=== PATIENT | female | born 1980 | race Caucasian/White ===

== ENCOUNTER 2018-10-13 06:16 | Day surgery (SDC) | payer OTHER ==
[2018-10-06 14:10] LABS: Absolute Lymphocytes (CBC) 2.4 K/uL (0.7-4.9); Absolute Monocytes 0.8 K/uL (0.1-1.3); Absolute Neutrophil 7.2 K/uL (1.8-8.0); Basophils % 0.9 % (0-1.3); Eosinophils % 2.2 % (0-4.4); Hematocrit 38.3 % (36.0-45.0); Lymphocytes % 22.1 % (15.3-44.8); Monocytes % 7.7 % (3.3-12.3); RBC Red Blood Cell Count 4.12 M/uL (3.86-4.86)
[2018-10-06 14:18] LABS: Urine Appearance CLEAR; Urine Bilirubin NEGATIVE (NEG); Urine Blood NEGATIVE (NEG); Urine Color YELLOW; Urine Glucose NEGATIVE (NEG); Urine Protein NEGATIVE (NEG); Urine Specific Gravity <=1.005 (1.005-1.030); Urine Urobilinogen 0.2 mg/dL (0.2-1.0); Urine pH 7.5 (5.0-7.0)
[2018-10-06 14:25] LABS: Urine Bacteria <20 /HPF (<20); Urine Culture Reflex Order REFLEXED; Urine Microscopic Reflex ORDER UMIC; Urine RBC <5 /HPF (NONE SEEN)
[2018-10-13] MEDS ORDERED: ROCURONIUM 50 MG/5 ML VIAL IV ONE (07:02)
[2018-10-13] MEDS ORDERED: PROPOFOL 200 MG/20 ML VIAL IV ONE (07:02)
[2018-10-13] MEDS ORDERED: GLYCOPYRROLATE 0.2 MG/ML SYR ONE ×2 (07:03→07:04)
[2018-10-13] MEDS ORDERED: LIDOCAINE 2% MPF 5 ML VIAL ONE (07:04)
[2018-10-13] MEDS ORDERED: DEXAMETHASONE 10 MG/ML VIAL ONE (07:04)
[2018-10-13] MEDS ORDERED: FENTANYL CITR 250 MCG/5 ML ONE (07:05)
[2018-10-13] MEDS ORDERED: NEOSTIGMINE 1 MG/ML -5 ML SYRINGE ONE (07:07)
[2018-10-13] MEDS ORDERED: ONDANSETRON 4 MG/2 ML VIAL ONE ×2 (07:07→10:21)
[2018-10-13] MEDS ORDERED: SCOPOLAMINE HYDROBROMIDE PATCH TD ONE (07:13)
[2018-10-13] MEDS ORDERED: Ringers Lactate 1,000 ML IV ONE ×3 (07:14→11:48)
[2018-10-13] MEDS ORDERED: NA CHLORIDE 0.9% 1,000 ML ONE (07:16)
[2018-10-13] MEDS ORDERED: MIDAZOLAM HCL 2 MG/2 ML INJ ONE (07:19)
[2018-10-13] MEDS ORDERED: Phenylephrine HCl 10 MG/ML 1 ML VIAL ONE (08:33)
[2018-10-13] MEDS ORDERED: NS 0.9% VIAL 20 ML ONE (08:33)
[2018-10-13] MEDS ORDERED: METHYLENE BLUE 0.5% 10 ML AMP ONE (10:12)
[2018-10-13] MEDS ORDERED: KETOROLAC 30 MG/ML INJ ONE (10:16)
[2018-10-13] MEDS: MEPERIDINE HCL 50 MG/ML AMP ONE ×2 (10:52→11:00)
[2018-10-13] MEDS ORDERED: ONDANSETRON HCL 40 MG/20 ML VIAL ONE (11:07)
[2018-10-13] MEDS: HYDROMORPHONE HCL 1 MG/ML INJ ONE ×2 (11:16→11:30)
[2018-10-13] MEDS ORDERED: IBUPROFEN 200 MG TAB PO ONE (12:40)
--- NOTE | 2018-10-17 00:32 | OP ---
Date of Procedure: 10/13/2018 Surgeon: Melissa Calix MD Insurance Premium Auditor: Arin Escobar. Preoperative Diagnoses: Pelvic pain, history of endometriosis in the past diagnosed and treated abou t 12 years ago, and secondary dysmenorrhea. 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 Procedures Performed: 1.Diagnostic hysteroscopy. 2.Diagnostic laparoscopy. 3.Endometriosis excision and ablation. 4.Lysis of cecal adhesions. 5.Chromotubation. 6.Bilateral ovariolysis where the ovaries were released of their adhesions in order to have good egg pickup and the medial and superior pole close to the utero-ovarian ligament attachment was cleaned u p as best as I could so that there was no more endometriosis here that could attach to the lateral wa ll. Anesthesia: General. Estimated Blood Loss: Minimal, less than 100. Complications: No complications. Drains: None. Condition: Stable. Indications: The patient is a 38-year-old, presented with pelvic pain and severe dysmenorrhea. Nonc yclic pelvic pain has gotten much worse. She is patient of Dr. Tilley. The patient had severe dysme norrhea, diagnosed with endometriosis and had endometriosis excision 12 years ago. She has undergone a gastric sleeve as well for weight loss and has lost significant amount of weight. The patient has desires for future conception. The patient is a 4, para 2-0-2-2. Progressiv david, the patient has had increasing pelvic pain that was noncyclic with increasing dysmenorrhea. It has come to the point where she is unable to conceive and the pain has become so limiting especially in the right lower quadrant. It is sharp at times where there is no pain relief for her, that the ep isodic pain can last for greater than 2 days without any relief. This pain is also worse during the time of her periods. So we discussed about all the different options, especially since she was tryin g to conceive and the pain has become intolerable, discussed about the option of a laparoscopy, possi ble endometriosis excision. Due the long history of possible infertility where there were no contrac eptives use, she was actively trying to conceive and unable to, decided that she needs evaluation of chromotubation. However, no prior evidence of any testing has been given to me. After doing the transvaginal ultrasound, no adnexal masses found. Then we discussed diagnostic hyste roscopy, diagnostic laparoscopy, endo treatment and chromotubation. That could help with both in rel ief in pain as well as conception. Checking tubal patency could also be done at the same time. Description Of Procedure: After informed consent was verified, the patient was taken back to the OR, placed in a supine fashion on the operating table. General anesthesia was given. Placed in a dorsa l lithotomy position. No antibiotics were given. Pelvic exam performed. Uterus was retroflexed, no adnexal masses. After exam was done the abdomen, vulva, vagina, and perineum were prepped and draped in a sterile fas hion. Harris was placed to drain the bladder. Speculum placed to expose the cervix, anterior lip gra sped with an Allis clamp and Slimline hysteroscope used with 30-degree lens normal saline for checkin g the internal anatomy of the uterus itself. Once this was done and it was unremarkable, the scope w as pulled out and a diagnostic VCare was introduced into place. Harris was attached to a drainage bul b and this area was covered. A 1 cm infraumbilical incision was made with a scalpel using the open laparoscopy technique. Fascia was incised and tagged. Peritoneum was entered bluntly, S retractors were placed without any problem s. Upper abdominal surfaces were visualized and they were mostly unremarkable other than the left di aphragmatic single implant that was seen. This was possibly an implant, we do not have confirmation. After placing the patient in Trendelenburg, three 5 ports were placed in the left lower quadrant and right lower quadrant and central. This was because of the large cecal adhesion present in the right lower quadrant, which had to be taken down there and there were also anterior abdominal masses which were most likely adhesions from her prior scar. On close examination, there was evidence of endometriosis on the cecum and this was attached to the r ight lateral anterior abdominal wall. This probably was the site of her pain and this correlates wit h the site of her pain. The adhesions were closely visualized, with a push-spread technique windows were made and this was ta sloan down. All the other omental adhesions that were present to the anterior abdominal wall both in t he right and left were taken down with the help of the LigaSure. Once the cecum was released, all the pericecal adhesions were taken down. The appendix was visualize d. The appendix had no involvement in this endometrial tissue. The tissue appeared to be penetratin g through the muscle of the cecum because there was no space between the lesion and the cecal wall so the adhesions were shaved off, the tissue on the cecal wall was gently teased out. Thorough irrigat ion and suction were performed. This was hemostatic and safe so it was left alone. Right lateral wall was visualized. The ureter was visualized with the pelvic brim to the ureteric tu nnel. There was endometriosis extensively with the right ovary attached to the right sidewall and to the posterior aspect of the broad ligament as well as the distal part of the tube was attached in the same area. These adhesions were taken down with push-spread technique with cutting using the laparo scopic cold scissors. Once this was achieved, the ovary was retracted superiorly from here on all th e way down to the periureteric area and the uterosacral ligaments on both sides. The entire cul-de-s ac was all involved with endometriosis. Tried to make a window lateral and superior to the ureter us ing the sharp scissors. Since there is absence of fat, it was difficult to create a plane where the gas would get there. There was no carbon dioxide gas during dissection for me in this case. With th at, along multiple points the peritoneum was opened up and the ureteric dissection was attempted to b e performed but this was very difficult because there was bleeding everywhere I started my cut. So I think at one point starting distally at the level of the uterine line, there was a bleed from one of its branches and this was cauterized after making a nice window with the LigaSure. Once this was do ne, I decided to remove the implants closer to the uterosacral ligament which were removable here. T his was dissected with the monopolar needle and removed. Rest of the implants were picked up and cau terized with the help of the bipolar LigaSure and left alone. The uterosacral ligament implants were also shaved off and removed. There were posterior cul-de-sac implants as well that were picked up a nd dissected laterally from the bowel wall and then cauterized with the help of the bipolar. Then th e left lateral wall, the incision was made to open up the peritoneum, only small dissection was able to be performed due to the same reasons as to opposite side but there was no fat and all the endometr iosis was soft and attached to the vessels as well as the ureter. So once all that could be shaved, all was taken down with the help of push-spread technique and a monopolar needle. The rest of the im plants were cauterized with the help of the bipolar cautery. Once this was done, the anterior cul-de -sac was approached. Here, there was endometriosis on the bladder peritoneum. The peritoneum was op ened up above the level of this and nice circumferential monopolar needle dissection was performed an d then the implants x3 were dissected away and handed off for permanent pathology. The anterior abdo casandra wall on the right lateral aspect where the cecum was attached, this was also cleaned up with th e help of monopolar needle taking out all the tissue that was attached to the underlying rectus abdom inis fascia. Once the endometrial implants were satisfactorily removed, the ovarian adhesions on the left side wer e also taken down with the help of scissors and the ovary was released. We went ahead and did chromo tubation with dilute methylene blue 1 ampule in 50 cc of normal saline. On injection, both tubes debbie dily filled and spilled. No evidence of any clubbing or hydrosalpinges. Thorough irrigation and suc tion were performed. All the ports were removed. All the instruments were removed along with no boris dence of any bleeding. Gas was desufflated. Delilah was removed. The fascia was closed with the hel p of the tagged 0 Vicryl suture tied to each other at both ends and then simple 4-0 Monocryl sutures at all incisions. VCare and Harris were removed and this area was cleaned up. Instrument, needle, an d sponge counts were done and were correct at the end of the case. The patient tolerated the procedu re well. She was recovered from anesthesia in the OR and taken to PACU in stable condition. She will follow up with me in 1 week. CAMACHO Voice ID: [id number] Report ID: [id number]
== END 2018-10-13 13:38 | disposition home or self-care (01) ==
LOC: OR 06:16
PROVIDERS: ATTEND Obstetrics & Gynecology
PROC: 0UB04ZX Excision of Right Ovary, Percutaneous Endoscopic Approach, Diagnostic (ICD-10-PCS; 2018-10-13)
PROC: 0UB94ZX Excision of Uterus, Percutaneous Endoscopic Approach, Diagnostic (ICD-10-PCS; 2018-10-13)
PROC: 0UB54ZX Excision of Right Fallopian Tube, Percutaneous Endoscopic Approach, Diagnostic (ICD-10-PCS; 2018-10-13)
PROC: 3E0P7KZ Introduction of Other Diagnostic Substance into Female Reproductive, Via Natural or Artificial Opening (ICD-10-PCS; 2018-10-13)
PROC: 0UBF4ZX Excision of Cul-de-sac, Percutaneous Endoscopic Approach, Diagnostic (ICD-10-PCS; principal; 2018-10-13 07:30)
DX: N80.0 Endometriosis of uterus (principal); N94.5 Secondary dysmenorrhea; N80.5 Endometriosis of intestine; N80.8 Other endometriosis; K66.0 Peritoneal adhesions (postprocedural) (postinfection); N73.6 Female pelvic peritoneal adhesions (postinfective); F41.9 Anxiety disorder, unspecified; F33.1 Major depressive disorder, recurrent, moderate; Z79.899 Other long term (current) drug therapy
CPT/HCPCS: 36415; 81003; 81015; 81025; 85025; 86850; 86900; 86901; 87086; 87088; 88305; J1100; J1170; J2175; J2250; J2370; J2405; J2704; J2710; J3010; J7030

== ENCOUNTER 2019-03-04 16:00 | Emergency (ER) | payer OTHER ==
[2019-03-04] MEDS ORDERED: MORPHINE 2 MG/ML SYR ONE (16:43)
[2019-03-04] MEDS ORDERED: ONDANSETRON 4 MG/2 ML VIAL ONE (16:43)
[2019-03-04] MEDS ORDERED: FAMOTIDINE 20 MG/2 ML VIAL IV ONE (16:44)
[2019-03-04] MEDS ORDERED: NA CHLORIDE 0.9% 1,000 ML ONE ×2 (16:44→18:18)
[2019-03-04 16:46] LABS: Absolute Monocytes 0.3 K/uL (0.1-1.3); Absolute Neutrophil 9.5 K/uL (1.8-8.0); Basophils % 0.2 % (0-1.3); Eosinophils % 0.1 % (0-4.4); Hematocrit 39.1 % (36.0-45.0); Lymphocytes % 9.4 % (15.3-44.8); Monocytes % 3.1 % (3.3-12.3); RBC Red Blood Cell Count 4.25 M/uL (3.86-4.86)
[2019-03-04 17:07] LABS: Albumin 4.1 g/dL (3.4-5.0); Bilirubin Direct 0.4 mg/dL (0-0.2); Bilirubin Total 0.8 mg/dL (0.2-1.0); Potassium 4.2 mmol/L (3.5-5.1); Protein, Total 7.8 g/dL (6.4-8.2)
--- NOTE | 2019-03-04 17:18 | RAD REPORT ---
EXAM DESCRIPTION: US - Abdomen Exam Limited - 03/04/2019 4:55 pm CLINICAL HISTORY: Abdominal pain. COMPARISON: None. FINDINGS: Multiple gallstones. Borderline gallbladder wall thickening. The biliary tree is normal caliber. IMPRESSION: Cholelithiasis. Borderline gallbladder wall thickening equivocal for cholecystitis
[2019-03-04 17:41] LABS: Urine Blood NEGATIVE (NEG); Urine Glucose NEGATIVE (NEG); Urine Protein 2+ (NEG)
[2019-03-04] MEDS ORDERED: CEFTRIAXONE/SWI 1gm 1 GM/10 ML SYR ONE (18:01)
[2019-03-04] MEDS ORDERED: FENTANYL CITR 100 MCG/2 ML ONE (18:18)
--- NOTE | 2019-03-04 18:24 | EDPHYS ---
Physician Documentation [facility] Name: Soledad Whelan Age: 38 yrs Sex: Female : 1980 Arrival Date: 03/04/2019 Time: 16:04 Bed 13 Private MD: Ismael Tilley B ED Physician Leo Kelley HPI: 03/04 16:25 This 38 yrs old Female presents to ER via Ambulatory with complaints of cp Abdominal Pain. 16:25 The patient presents with abdominal pain in the epigastric area, in the right upper cp quadrant. 16:25 Onset: The symptoms/episode began/occurred today, at 10:00. cp 16:25 The symptoms radiate to Associated signs and symptoms: Pertinent positives: nausea, cp Pertinent negatives: blood in stools, constipation, diarrhea, dysuria, fever, vomiting. 16:25 Severity of pain: in the emergency department the pain is a 6 / 10. cp 16:25 The symptoms are described as constant. Modifying factors: the symptoms are aggravated cp by pressure. 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 - Social history:: Smoking status: Patient/guardian denies using tobacco. - Ebola Screening: : No symptoms or risks identified at this time. ROS: 16:30 Constitutional: Negative for body aches, chills, fever, poor PO intake. cp 16:30 Eyes: Negative for injury, pain, redness, and discharge. cp 16:30 Cardiovascular: Negative for chest pain, palpitations. cp 16:30 Respiratory: Negative for cough, shortness of breath, wheezing. cp 16:30 Abdomen/GI: Positive for abdominal pain, nausea, anorexia, of the epigastric area and right upper quadrant, Negative for vomiting, diarrhea, constipation. 16:30 Back: Positive for radiated pain, Negative for injury or acute deformity. 16:30 : Negative for urinary symptoms. 16:30 Skin: Negative for cellulitis, rash. 16:30 Neuro: Negative for altered mental status, headache, weakness. 16:30 All other systems are negative. Exam: 16:45 Constitutional: The patient appears in no acute distress, alert, awake, non-toxic, well cp developed, well nourished, uncomfortable. 16:45 Head/Face: Normocephalic, atraumatic. cp 16:45 Eyes: Periorbital structures: appear normal, Conjunctiva: normal, no exudate, no injection, Sclera: no appreciated abnormality, Lids and lashes: appear normal, bilaterally. 16:45 ENT: External ear(s): are unremarkable, Nose: is normal, Mouth: Lips: moist, Oral mucosa: pink and intact, moist, Posterior pharynx: is normal, airway is patent, no erythema, no exudate. 16:45 Neck: ROM/movement: is normal, is supple, without pain, no range of motions limitations, no nuchal rigidity. 16:45 Chest/axilla: Inspection: normal, Palpation: is normal, no crepitus, no tenderness. 16:45 Cardiovascular: Rate: tachycardic, Rhythm: regular. 16:45 Respiratory: the patient does not display signs of respiratory distress, Respirations: normal, no use of accessory muscles, no retractions, no splinting, no tachypnea, labored breathing, is not present, Breath sounds: are clear throughout, no decreased breath sounds, no stridor, no wheezing. 16:45 Abdomen/GI: Inspection: abdomen appears normal, Bowel sounds: active, all quadrants, Palpation: soft, in all quadrants, severe abdominal tenderness, in the epigastric area and right upper quadrant, rebound tenderness, is not appreciated, voluntary guarding, is elicited in the epigastric area and right upper quadrant. 16:45 Back: ROM is normal. Vital Signs: 16:06 BP 114 / 65; Pulse 113; Resp 18; Temp 98; Pulse Ox 100% ; Weight 59.42 kg; Height 5 ft. sv 4 in. (162.56 cm); Pain 6/10; 17:05 BP 95 / 49; Pulse 71; Resp 18; Pulse Ox 100% ; bp 18:28 BP 101 / 59; Pulse 73; Resp 14; Pulse Ox 100% ; bp 20:30 BP 103 / 65; Pulse 78; Resp 18; Temp 97.5(O); Pulse Ox 100% on R/A; ed1 16:06 Body Mass Index 22.49 (59.42 kg, 162.56 cm) sv MDM: 16:07 Patient medically screened. 16:45 Differential diagnosis: appendicitis, cholecystitis, Cholelithiasis, pancreatitis, cp Peptic Ulcer Disease, Perf. Duodenal Ulcer, Perf. Gastric Ulcer, Pyelonephritis, urinary tract infection. 17:25 Data reviewed: vital signs, nurses notes, lab test result(s), radiologic studies, cp ultrasound. 17:25 Counseling: I had a detailed discussion with the patient and/or guardian regarding: the cp historical points, exam findings, and any diagnostic results supporting the discharge/admit diagnosis, lab results, radiology results. 17:35 Physician consultation: Brennan Merlos MD was called at 17:35, was contacted at 17:35, regarding consult, after a discussion of the case, a recommendation for transfer for higher level of care is made. 03/04 16:21 Order name: Basic Metabolic Panel; Complete Time: 17:24 03/04 17:24 Interpretation: Normal except: CL 108; GFR 65. 03/04 16:21 Order name: CBC with Diff 03/04 17:08 Interpretation: Normal except: RDW 12.0; LAST% 87.2; LYM% 9.4; MN% 3.1; NEUT A 9.5. 03/04 16:21 Order name: Creatinine for Radiology; Complete Time: 17:08 03/04 17:08 Interpretation: Reviewed. 03/04 16:21 Order name: Hepatic Function; Complete Time: 17:24 03/04 17:24 Interpretation: Normal except: AST 457; ALT 252; ALK 199; BILID 0.4; GLOB 3.7. 03/04 16:21 Order name: Lipase; Complete Time: 17:24 03/04 16:53 Order name: Urine Dipstick--Ancillary (enter results); Complete Time: 17:44 03/04 17:58 Interpretation: Normal except: UPROT 2+; UESTR TRACE. 03/04 16:21 Order name: US Abdomen Limited: RUQ/epigastric pain; Complete Time: 17:24 03/04 17:38 Interpretation: Report reviewed. 03/04 16:53 Order name: Urine --Ancillary (enter results); Complete Time: 17:44 03/04 18:43 Order name: CBC Smear Scan EDNC 03/04 16:21 Order name: IV Saline Lock; Complete Time: 16:51 cp 03/04 16:21 Order name: Labs collected and sent; Complete Time: 16:51 cp 03/04 16:21 Order name: Urine Dipstick-Ancillary (obtain specimen); Complete Time: 16:41 cp 03/04 16:21 Order name: Urine Test (obtain specimen); Complete Time: 16:41 cp 03/04 16:21 Order name: NPO; Complete Time: 16:23 cp Administered Medications: 16:40 Drug: Pepcid 20 mg Route: IVP; Site: right antecubital; bp 17:10 Follow up: Response: Nausea is decreased bp 16:40 Drug: Zofran 4 mg Route: IVP; Site: right antecubital; bp 17:10 Follow up: Response: Nausea is decreased bp 16:40 Drug: morphine 2 mg Route: IVP; Site: right antecubital; bp 17:10 Follow up: Response: Pain is decreased bp 16:40 Drug: NS 0.9% 1000 ml Route: IV; Rate: 1 bolus; Site: right antecubital; bp 18:56 Follow up: IV Status: Completed infusion; IV Intake: 1000ml bp 17:49 Drug: Rocephin - (cefTRIAXone) 1 grams Route: IVPB; Infused Over: 30 mins; Site: right bp antecubital; 18:55 Follow up: IV Status: Completed infusion; IV Intake: 20ml bp 17:50 Drug: NS 0.9% 1000 ml Route: IV; Rate: 125 ml/hr; Site: right antecubital; bp 18:56 Follow up: IV Status: Infusion continued upon transfer bp 17:50 Drug: fentaNYL (PF) 25 mcg Route: IVP; Site: right antecubital; bp 18:32 Follow up: Response: Pain is decreased bp 18:40 Drug: ProTONIX 40 mg Route: IVP; Site: right antecubital; bp 19:00 Follow up: Response: No adverse reaction bp Disposition: 03/04/19 18:23 Transfer ordered to [facility]. Diagnosis are Cholelithiasis, Abnormal results of liver function studies. - Reason for transfer: Higher level of care. - Accepting physician is DR Yip. - Condition is Stable. - Problem is new. - Symptoms have improved. Addendum: 03/07/2019 07:07 Co-signature as Attending Physician, Leo Kelley MD I agree with the assessment and k dr plan of care. Signatures: Dispatcher [employer] Taylor Clancy, RN RN Leo Kelley MD MD [facility] Cecilia Bravo RN RN ed1 Mohan He, PA PA cp John Chatterjee RN RN bp Corrections: (The following items were deleted from the chart) 03/04 18:28 18:23 03/04/2019 18:23 Transfer ordered to [facility]. Diagnosis is cp Cholelithiasis. Reason for transfer: Higher level of care. Accepting physician is DR Yip. Condition is Stable. Problem is new. Symptoms have improved. cp 20:51 18:28 03/04/2019 18:23 Transfer ordered to [facility]. Diagnosis is ed1 Cholelithiasis; Abnormal results of liver function studies. Reason for transfer: Higher level of care. Accepting physician is DR Yip. Condition is Stable. Problem is new. Symptoms have improved. cp
--- NOTE | 2019-03-04 18:24 | ER ---
Nurse's Notes [facility] Name: Soledad Whelan Age: 38 yrs Sex: Female : 1980 Arrival Date: 03/04/2019 Time: 16:04 Bed 13 Private MD: Ismael Tilley B Diagnosis: Cholelithiasis;Abnormal results of liver function studies Presentation: 03/04 16:05 Presenting complaint: Patient states: diffuse abd pain but mostly RUQ and nausea since sv 1000 today. Transition of care: patient was not received from another setting of care. Onset of symptoms was March 04, 2019 at 10:00. Initial Sepsis Screen: Does the patient meet any 2 criteria? No. Patient's initial sepsis screen is negative. Does the patient have a suspected source of infection? No. Patient's initial sepsis screen is negative. Care prior to arrival: None. 16:05 Method Of Arrival: Ambulatory sv 16:05 Acuity: BENNETT 3 sv 18:51 Risk Assessment: Do you want to hurt yourself or someone else? Patient reports no bp desire to harm self or others. Triage Assessment: 16:05 General: Appears in no apparent distress. uncomfortable, well developed, Behavior is sv cooperative, appropriate for age, anxious. Pain: Complains of pain in abdomen, with RUQ >LUQ Pain currently is 6 out of 10 on a pain scale. Pain began 1000 today. Neuro: Level of Consciousness is awake, alert, obeys commands, Oriented to person, place, time, situation, Moves all extremities. Full function Gait is steady. Respiratory: Respiratory effort is even, unlabored, Respiratory pattern is regular, symmetrical. GI: Reports lower abdominal pain, upper abdominal pain, nausea. 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 - Social history:: Smoking status: Patient/guardian denies using tobacco. - Ebola Screening: : No symptoms or risks identified at this time. Screenin:30 Abuse screen: Denies threats or abuse. Denies injuries from another. Nutritional bp screening: No deficits noted. Tuberculosis screening: No symptoms or risk factors identified. Fall Risk None identified. Assessment: 16:15 General: SEE TRIAGE NOTE. bp 16:40 Reassessment: PT TO U/S. bp 16:40 GI: Bowel sounds present X 4 quads. Abdomen is tender to palpation in right upper bp quadrant. 17:05 Reassessment: PT RETURNED FROM U/S. ALL CURRENT ORDERS COMPLETED, RESULTS PENDING. bp 18:28 Reassessment: TRANSFER IN PROCESS. bp 18:50 Reassessment: REPORT TO LISA SOLORIO AT [facility]. TRANSPORT PENDING. bp 20:30 Reassessment: Patient appears in no apparent distress at this time. Patient and/or ed1 family updated on plan of care and expected duration. Pain level reassessed. Patient is alert, oriented x 3, equal unlabored respirations, skin warm/dry/pink. Pt resting comfortably at this time. Awaiting transfer to [facility]. 20:50 Reassessment: Patient appears in no apparent distress at this time. Patient and/or ed1 family updated on plan of care and expected duration. Pain level reassessed. Patient is alert, oriented x 3, equal unlabored respirations, skin warm/dry/pink. Report given to EMS. Vital Signs: 16:06 BP 114 / 65; Pulse 113; Resp 18; Temp 98; Pulse Ox 100% ; Weight 59.42 kg; Height 5 ft. sv 4 in. (162.56 cm); Pain 6/10; 17:05 BP 95 / 49; Pulse 71; Resp 18; Pulse Ox 100% ; bp 18:28 BP 101 / 59; Pulse 73; Resp 14; Pulse Ox 100% ; bp 20:30 BP 103 / 65; Pulse 78; Resp 18; Temp 97.5(O); Pulse Ox 100% on R/A; ed1 16:06 Body Mass Index 22.49 (59.42 kg, 162.56 cm) sv ED Course: 16:04 Patient arrived in ED. mr 16:04 Ismael Tilley MD is Private Physician. mr 16:05 Triage completed. sv 16:06 Arm band placed on. sv 16:07 John Chatterjee, LYNDSEY is Primary Nurse. bp 16:07 Mohan He PA is PHCP. cp 16:07 Leo Kelley MD is Attending Physician. cp 16:30 Patient has correct armband on for positive identification. Bed in low position. Call bp light in reach. Side rails up X2. Adult w/ patient. 16:40 Inserted saline lock: 20 gauge in right antecubital area, using aseptic technique. bp Blood collected. 16:56 US Abdomen Limited: RUQ/epigastric pain In Process Unspecified. EDMS 17:44 transfer initiated with Nadege at the [facility]. eb 17:[address] Blair the GI stitch bonding machine tender for [facility] with Mohan FONSECA for patient eb transfer consultation. 18:[address] Yip the hospitalist stitch bonding machine tender for [facility] with Mohan FONSECA for eb patient transfer consultation. 18:19 Administrative approval given by Nadege Sanchez RN from the [facility] eb center/ patient was accepted by Dr. Yip from the [facility] bed 1515/ report to be called to [phone]. 18:50 No provider procedures requiring assistance completed. Patient transferred, IV remains bp in place. 20:32 transfer transportation to receiving facility. ed1 Administered Medications: 16:40 Drug: Pepcid 20 mg Route: IVP; Site: right antecubital; bp 17:10 Follow up: Response: Nausea is decreased bp 16:40 Drug: Zofran 4 mg Route: IVP; Site: right antecubital; bp 17:10 Follow up: Response: Nausea is decreased bp 16:40 Drug: morphine 2 mg Route: IVP; Site: right antecubital; bp 17:10 Follow up: Response: Pain is decreased bp 16:40 Drug: NS 0.9% 1000 ml Route: IV; Rate: 1 bolus; Site: right antecubital; bp 18:56 Follow up: IV Status: Completed infusion; IV Intake: 1000ml bp 17:49 Drug: Rocephin - (cefTRIAXone) 1 grams Route: IVPB; Infused Over: 30 mins; Site: right bp antecubital; 18:55 Follow up: IV Status: Completed infusion; IV Intake: 20ml bp 17:50 Drug: NS 0.9% 1000 ml Route: IV; Rate: 125 ml/hr; Site: right antecubital; bp 18:56 Follow up: IV Status: Infusion continued upon transfer bp 17:50 Drug: fentaNYL (PF) 25 mcg Route: IVP; Site: right antecubital; bp 18:32 Follow up: Response: Pain is decreased bp 18:40 Drug: ProTONIX 40 mg Route: IVP; Site: right antecubital; bp 19:00 Follow up: Response: No adverse reaction bp Intake: 18:55 IV: 20ml; Total: 20ml. bp 18:56 IV: 1000ml; Total: 1020ml. bp Outcome: 18:23 ER care complete, transfer ordered by MD. cp 18:51 Transferred by ground EMS to [facility], Transfer form completed. bp 18:51 Condition: stable 18:51 Instructed on the need for transfer. 20:50 Transferred by ground EMS [facility] to [facility]. ed1 20:50 Condition: stable 20:50 Discharge instructions given to patient, Instructed on the need for transfer, Demonstrated understanding of instructions. 20:51 Patient left the ED. ed1 Signatures: Dispatcher [employer] Taylor Clancy, RN RN Shruthi Bansal Erika, RN RN ed1 Mohan He PA PA cp Peltier, Brian, RN RN Arcelia Michel
[2019-03-04 18:42] LABS: Blood Morphology Comment NOT SEEN (NOT SEEN); Platelet Estimate ADEQ; Urine White Blood Cell Casts OK
[2019-03-04] MEDS ORDERED: PANTOPRAZOLE 40 MG INJ ONE (19:13)
== END 2019-03-04 20:51 | disposition short-term general hospital (02) ==
LOC: ER 16:00
DX: K80.20 Calculus of gallbladder without cholecystitis without obstruction (principal); R94.5 Abnormal results of liver function studies; Z88.2 Allergy status to sulfonamides
CPT/HCPCS: 36415; 76705; 80048; 80076; 81003; 81025; 83690; 85025; 96361; 96365; 96375; 99285; C9113; J0696; J2270; J2405; J3010; J7030

== ENCOUNTER 2020-03-08 06:13 | Day surgery (SDC) | payer OTHER ==
[2020-03-05 12:26] LABS: Basophils % 0.9 % (0-1.3); Hematocrit 37.1 % (36.0-45.0); Lymphocytes % 33.1 % (15.3-44.8); MPV 7.2 fL (7.6-11.3); RBC Red Blood Cell Count 3.95 M/uL (3.86-4.86)
[2020-03-05 12:45] LABS: Urine Appearance CLEAR; Urine Bilirubin NEGATIVE (NEG); Urine Blood NEGATIVE (NEG); Urine Color YELLOW; Urine Glucose NEGATIVE (NEG); Urine Protein NEGATIVE (NEG); Urine Urobilinogen 0.2 mg/dL (0.2-1.0); Urine pH 7.5 (5.0-7.0)
[2020-03-05 12:47] LABS: Urine Microscopic Reflex NO UMIC
--- OUTSIDE RECORDS SUMMARY | 2020-03-08 06:22 | XMS REPORT | Clinical Summary ---
:1980 Author Organization [facility] Address [address] [place] [address] Care Team Providers Name Role Phone Asked, Pcp Primary Care Provider Unavailable Allergies Active Allergy Reactions Severity Noted Date Comments Sulfa (Sulfonamide Antibiotics) Hives High 9 Medications Medication Sig Dispensed Refills Start End Date Status Date pantoprazole Take 40 mg by 3 09/06/20 Dis continued (PROTONIX) 40 MG mouth daily. 9 19 (Contact Move - EC tablet Error) montelukast Take 10 mg by 3 09/06/20 Disc ontinued (SINGULAIR) 10 mg mouth daily. 9 19 (Contact Move - tablet Error) levocetirizine Take 5 mg by 9 09/06/20 Di scontinued (XYZAL) 5 MG mouth daily. 9 19 (Con tact Move - tablet Error) clindamycin INSERT ONE (1) 1 09/06/20 Dis continued (CLEOCIN) 2 % APPLICATORFUL 9 19 (C ontact Move - vaginal cream INTO VAGINA ONCE Error) DAILY AT BEDTIME. buPROPion XL Take 300 mg by 0 09/06/20 Di scontinued (WELLBUTRIN XL) mouth daily. 19 ( Contact Move - 300 MG 24 hr Error) tablet Active Problems Not on file Encounters Date Type Specialty Care Team Description 09/26/2019 Hospital Encounter Radiology Yesika, Abnormal x-ray of abdomen; Marcellus Downing Abdominal mily n 09/26/2019 Documentation Gastroenterology Marcellus Napoles MD 09/23/2019 Transcribe Orders Access Yesika, Abdominal pain, bilateral lower quadrant (Primary Dx); Marcellus Downing Abnormal x-ra y of abdomen 09/06/2019 Documentation Gastroenterology Marcellus Napoles MD 09/05/2019 Documentation GastroenterMarcellus Bauman MD 08/30/2019 Office Visit Gastroenterology Yesika, Gastroesoph ageal reflux disease, esophagitis presence not specified (Primary Dx); Marcellus Downing, Abnormal x-ra y of abdomen; Epigastric pain ; Abdominal pain, bilateral lower quadrant after 03/08/2019 Social History Tobacco Use Types Packs/Day Years Used Date Never Assessed Sex Assigned at Date Recorded Not on file Job Start Date Occupation Industry Not on file Not on file Not on file Travel History Travel Start Travel End No recent travel history available. Last Filed Vital Signs Vital Sign Reading Time Taken Comments Blood Pressure 122/75 08/30/2019 2:49 PM CORE SUCKER Pulse 120 08/30/2019 2:49 PM CORE SUCKER Temperature 36.8 C (98.3 F) 08/30/2019 2:49 PM CORE SUCKER Respiratory Rate - - Oxygen Saturation - - Inhaled Oxygen Concentration - - Weight 63.5 kg (140 lb) 09/26/2019 8:59 AM CORE SUCKER Height 162.6 cm (5' 4") 09/26/2019 8:59 AM CORE SUCKER Body Mass Index 24.03 09/26/2019 8:59 AM CORE SUCKER Plan of Treatment Health Maintenance Due Date Last Done Comments CERVICAL CANCER SCREENING 2001 INFLUENZA VACCINE 05/05/2020 Procedures Procedure Name Priority Date/Time Associated Comments Diagnosis MRI CHOLANGIOGRAM W WO Routine 09/26/2019 9:40 Abnormal x-ray of Results for this CONTRAST AM CORE SUCKER abdomen procedure are in Abdominal pain the results section. LIPASE LEVEL Routine 08/30/2019 3:55 Abdominal pain, Results for this PM CORE SUCKER bilateral lower procedure ar e in quadrant the results section. AMYLASE LEVEL Routine 08/30/2019 3:55 Abdominal pain, Results for this PM CORE SUCKER bilateral lower procedure ar e in quadrant the results section. COMPREHENSIVE Routine 08/30/2019 3:55 Abdominal pain, Results for this METABOLIC PANEL PM CORE SUCKER bilateral lower procedure are in quadrant the results section. CBC HEMOGRAM Routine 08/30/2019 3:55 Abdominal pain, Results for this PM CORE SUCKER bilateral lower procedure ar e in quadrant the results section. after 03/08/2019 Results MRI CHOLANGIOGRAM W WO CONTRAST (09/26/2019 9:40 AM CORE SUCKER) Specimen Narrative Performed At This result has an attachment that is no t available. EXAMINATION: MRI CHOLANGIOGRAM W WO CONTRAST HM [facility] CLINICAL HISTORY: R93.5 Abnormal findi ngs on diagnostic imaging of other abdominal regions including retroperitoneum, R10.9 Unspecified abdominal pain, Abnormal Xray of abdomen COMPARISON: None available TECHNIQUE: Multiplanar, multisequence MR I of the abdomen with and without intravenous gadolinium. MRCP images were obtained with 3-D reconstructions performed on the acquisition scanner under concurrent supervision. FINDINGS: The liver is normal in size and contour. There are couple of subcentimeter T2 hyperintense lesions in the right lobe with delayed enhancement, difficult to fully characterize due to size but most consistent with hemangiomas. The gallbladder is absent. MRCP images d emonstrate no biliary or pancreatic ductal dilatation. There are couple of punctate cysts in th e tail the pancreas (series 15 image 17). No solid pancreatic mass. Spleen is normal in size. Subcentimeter cyst in the interpolar rig ht kidney. No hydronephrosis. Normal adrenal glands. No lymphadenopathy. No free fluid. IMPRESSION: No acute findings. Couple of nonspecific punctate cysts in the distal pancreatic tail. Follow-up can be obtained in one year. Small hepatic hemangiomas. [id number] Procedure Note Interface, Radiology Results Incoming - 09/26/2019 10:56 AM CORE SUCKER EXAMINATION: MRI CHOLANGIOGRAM W WO CONTRAST CLINICAL HISTORY: R93.5 Abnormal findin gs on diagnostic imaging of other abdominal regions including retroperitoneum, R10.9 Unspecified abdominal pain, Abnormal Xray of abdomen COMPARISON: None available TECHNIQUE: Multiplanar, multisequence MR I of the abdomen with and without intravenous gadolinium. MRCP images were obtained with 3-D reconstructions performed on the acquisition scanner under concurrent supervision. FINDINGS: The liver is normal in size and contour. There are couple of subcentimeter T2 hyperintense lesions in the right lobe with delayed enhancement, difficult to fully characterize due to size but most consistent with hemangiomas. The gallbladder is absent. MRCP images d emonstrate no biliary or pancreatic ductal dilatation. There are couple of punctate cysts in th e tail the pancreas (series 15 image 17). No solid pancreatic mass. Spleen is normal in size. Subcentimeter cyst in the interpolar rig ht kidney. No hydronephrosis. Normal adrenal glands. No lymphadenopathy. No free fluid. IMPRESSION: No acute findings. Couple of nonspecific punctate cysts in the distal pancreatic tail. Follow-up can be obtained in one year. Small hepatic hemangiomas. [id number] Performing Organization Address City/State/Zipcode Phone Number [facility] [address] [place] [address] CBC hemogram (08/30/2019 3:55 PM CORE SUCKER) Pathologist Sig [facility] WBC 7.4 3.8 - 10.8 [facility] Thousand/uL [facility] RBC 3.70 (L) 3.80 - 5.10 [facility] Million/uL [facility] HGB 11.1 (L) 11.7 - 15.5 g/dL [facility] HCT 33.7 (L) 35.0 - 45.0 % [facility] MCV 91.1 80.0 - 100.0 fL [facility] MCH 30.0 27.0 - 33.0 pg [facility] MCHC 32.9 32.0 - 36.0 g/dL [facility] RDW 11.4 11.0 - 15.0 % [facility] Platelet count 387 140 - 400 [facility] Thousand/uL [facility] MPV 9.3 7.5 - 12.5 fL [facility] Specimen Blood Narrative Performed At FASTING:NO [facility] FASTING: NO Resulting Agency Comment Performing Organization Information: Site ID: [id number] Name: [facility] Address: [address] [place] [id number] Director: Wesley Best Performing Organization Address [facility] Phone Number [facility] [address] [address] Lipase level (08/30/2019 3:55 PM CORE SUCKER) Pathologist [facility] nature Lipase 37 7 - 60 U/L [facility] Specimen Blood Narrative Performed At FASTING:NO [facility] FASTING: NO Resulting Agency Comment Performing Organization Information: Site ID: [id number] Name: [facility] Address: [address] [place] [id number] Director: Wesley Best Performing Organization Address [facility] Phone Number [facility] [address] [address] Amylase level (08/30/2019 3:55 PM CORE SUCKER) Pathologist [facility] nature Amylase 25 21 - 101 U/L [facility] Specimen Blood Narrative Performed At FASTING:NO [facility] FASTING: NO Resulting Agency Comment Performing Organization Information: Site ID: [id number] Name: [facility] Address: [address] [place] [id number] Director: Wesley Best Performing Organization Address City/[facility] Phone Number [facility] [address] [address] Comprehensive metabolic panel (08/30/2019 3:55 PM CORE SUCKER) Glucose 89 65 - 139 [facility] Comment: mg/dL [facility] Non-fasting reference interval BUN 8 7 - 25 mg/dL [facility] Creatinine 0.89 0.50 - 1.10 [facility] mg/dL [facility] EGFR Non-Afr. 82 > OR = 60 [facility] [place] mL/min/1.73m [facility] 2 EGFR 95 > OR = 60 [facility] [place] mL/min/1.73m [facility] 2 BUN/creatinine NOT APPLICABLE 6 - 22 [facility] ratio (calc) [facility] Sodium 142 135 - 146 [facility] mmol/L [facility] Potassium 4.6 3.5 - 5.3 [facility] mmol/L [facility] Chloride 105 98 - 110 [facility] mmol/L [facility] CO2 29 20 - 32 [facility] mmol/L [facility] Calcium 9.7 8.6 - 10.2 [facility] mg/dL [facility] Protein 7.1 6.1 - 8.1 [facility] g/dL [facility] Albumin, S 4.0 3.6 - 5.1 [facility] g/dL [facility] Globulin, total 3.1 1.9 - 3.7 [facility] g/dL (calc) [facility] Albumin/globulin 1.3 1.0 - 2.5 [facility] ratio (calc) [facility] Total bilirubin 0.3 0.2 - 1.2 [facility] mg/dL [facility] Alkaline 101 33 - 115 U/L [facility] phosphatase [facility] AST 20 10 - 30 U/L [facility] ALT 23 6 - 29 U/L [facility] Specimen Blood Narrative Performed At FASTING:NO [facility] FASTING: NO Resulting Agency Comment Performing Organization Information: Site ID: [id number] Name: [facility] Address: [address] [place] [id number] Director: Wesley Best Performing Organization Address City/State/Zipcode Phone Number [facility] [address] [address] after 03/08/2019 Advance Directives For more information, please contact: [phone] Type Date Recorded Patient Parcel Wrapper Explanati on Advance Directives, Living Will and Medical Power of Internet Network Specialist
--- OUTSIDE RECORDS SUMMARY | 2020-03-08 06:22 | XMS REPORT | Clinical Summary ---
:1980 Author Organization [facility] Address [address] [place] [address] Care Team Providers Name Role Phone Pcp, No Primary Care Provider Unavailable Allergies Active Allergy Reactions Severity Noted Date Comments Sulfa (Sulfonamide Antibiotics) Rash High 9 swelling Medications Medication Sig Dispensed Refills Start Date End Date Status levocetirizine (XYZAL) Take 5 mg by 0 Active 5 MG tablet mouth daily. pantoprazole Take 40 mg by 0 Act nupur (PROTONIX) 40 MG mouth daily. tablet buPROPion (WELLBUTRIN Take 300 mg by 0 Active XL) 300 MG 24 hr mouth daily. tablet montelukast Take 10 mg by 0 Acti ve (SINGULAIR) 10 mg mouth daily. tablet multivitamin per Take 1 tablet 0 Active tablet by mouth daily. Al hyd-Mg tr-alg Take 1 tablet 0 Active ac-sod bicarb (GENATON by mouth as 80-20) 80-20 mg needed for chewable tablet Heartburn. ORILISSA 200 mg Tab 0 02/22/2019 Active HYDROcodone-acetaminop Take 1 tablet 30 tablet 0 03/08/2019 hen (NORCO 5-325) by mouth every 5-325 mg per tablet 6 (six) hours as needed for up to 10 days. Max Daily Amount: 4 tablets ondansetron Take 1 tablet 20 tablet 0 03/08/2019 03/15/2019 Ex pired (ZOFRAN-ODT) 4 MG (4 mg total) by disintegrating tablet mouth every 6 (six) hours as needed for up to 7 days. polyethylene glycol Take 17 g by 14 each 0 03/08/20192018 (GLYCOLAX) 17 gram mouth daily for packet 14 days. Active Problems Problem Noted Date s/p lap francisco 03/07/19 03/04/2019 Right upper quadrant abdominal pain 03/04/2019 Transaminitis 03/04/2019 Encounters Date Type Specialty Care Team Description 03/04/2019 - Hospital General Internal Lindsay Sidhu Acute c holecystitis (Primary Dx); 03/08/2019 Encounter Medicine MD Ariana Right upper quadrant abdominal pain; Miracle Camargo Transaminitis; Shobha Love, s/p lap chol e 03/07/19 MD Paulino, MD Ariana Garcia, Caty Minaya MD after 03/08/2019 Family History Medical History Relation Name Comments Heart disease Father Heart disease Maternal Grandfather Heart disease Maternal Grandmother Heart disease Paternal Grandfather Heart disease Paternal Grandmother Relation Name Status Comments Father Maternal Grandfather Maternal Grandmother Paternal Grandfather Paternal Grandmother Social History Tobacco Use Types Packs/Day Years Used Date Never Smoker Smokeless Tobacco: Never Used Sex Assigned at Date Recorded Not on file Job Start Date Occupation Industry Not on file Not on file Not on file Travel History Travel Start Travel End No recent travel history available. Last Filed Vital Signs Vital Sign Reading Time Taken Blood Pressure 92/53 03/08/2019 7:53 AM CDT Pulse 89 03/08/2019 7:53 AM CDT Temperature 37.5 C (99.5 F) 03/08/2019 7:53 AM CDT Respiratory Rate 18 03/08/2019 7:53 AM CDT Oxygen Saturation 98% 03/08/2019 7:53 AM CDT Inhaled Oxygen Concentration - - Weight - - Height - - Body Mass Index - - Plan of Treatment Not on file Procedures Procedure Name Priority Date/Time Associated Comments Diagnosis RHYTHM STRIP - SCAN 03/09/2019 9:02 AM CDT TRANSFUSION SERVICE 03/08/2019 5:57 REPORT - SCAN PM CDT CBC W/PLT COUNT & Routine 03/08/2019 5:44 Result s for this AUTO DIFFERENTIAL AM CDT procedure are in the results section. APTT Routine 03/08/2019 5:44 Results for this AM CDT procedure are i n the results section. PROTHROMBIN TIME/INR Routine 03/08/2019 5:44 Res ults for this AM CDT procedure are i n the results section. CBC W/PLT COUNT & Routine 03/08/2019 5:44 Result s for this AUTO DIFFERENTIAL AM CDT procedure are in the results section. HEPATIC FUNCTION Routine 03/08/2019 5:44 Results for this PANEL AM CDT procedure are i n the results section. BASIC METABOLIC PANEL Routine 03/08/2019 5:44 Re sults for this (7) AM CDT procedure are i n the results section. after 03/08/2019 Results RHYTHM STRIP - SCAN (03/09/2019 9:02 AM CDT) Narrative Performed At This result has an attachment that is no t available. TRANSFUSION SERVICE REPORT - SCAN (03/08/2019 5:57 PM CDT) Narrative Performed At This result has an attachment that is no t available. CBC with platelet count + automated diff (03/08/2019 5:44 AM CDT) WBC 10.6 (H) 3.5 - 10.5 K/L [facility] RBC 3.28 (L) 3.93 - 5.22 M/L [facility] Hemoglobin 10.1 (L) 11.2 - 15.7 GM/DL [facility] Hematocrit 30.2 (L) 34.1 - 44.9 % [facility] MCV 92.1 79.4 - 94.8 fL [facility] MCH 30.8 25.6 - 32.2 pg [facility] MCHC 33.4 32.2 - 35.5 GM/DL [facility] RDW 10.9 (L) 11.7 - 14.4 % [facility] Platelets 224 150 - 450 K/CU MM [facility] MPV 9.8 9.4 - 12.3 fL [facility] nRBC 0 0 - 0 /100 WBC [facility] % Neutros 83 % [facility] % Lymphs 11 % [facility] % Monos 6 % [facility] % Eos 0 % [facility] % Baso 1 % [facility] # Neutros 8.81 (H) 1.56 - 6.13 K/L [facility] # Lymphs 1.12 (L) 1.18 - 3.74 K/L [facility] # Monos 0.59 (H) 0.24 - 0.36 K/L [facility] # Eos 0.00 (L) 0.04 - 0.36 K/L [facility] # Baso 0.05 0.01 - 0.08 K/L [facility] Immature Granulocytes-Relative 0 0 - 1 % C HI [facility] Specimen Blood Performing Organization Address City/State/Zipcode Phone Number [address] [address] CENTER aPTT (03/08/2019 5:44 AM CDT) PTT 29.5 22.5 - 36.0 seconds [facility] Specimen Blood Performing Organization Address City/State/Zipcode Phone Number [address] [address] CENTER Prothrombin time/INR (03/08/2019 5:44 AM CDT) Protime 13.6 11.9 - 14.2 seconds [facility] INR 1.1 <=5.9 [facility] Specimen Blood Narrative Performed At Effective 03/02/2019: PT Reference Range [facility] Change New: 11.9-14.2Previous: 11.7-14.7 RECOMMENDED COUMADIN/WARFARIN INR THERAPY RANGES STANDARD DOSE: 2.0-3.0Includes: PROPHYLAXIS for venous thrombosis, systemic embolization; TREATMENT for venous thrombosis and/or pulmonary embolus. HIGH RISK: Target INR is 2.5-3.5 for patients wiht mechanical heart valves. Performing Organization Address [facility]/Zipcode Phone Number [facility] [address] [place] [address] [place] Hepatic function panel (03/08/2019 5:44 AM CDT) Protein, Total 6.1 6.0 - 8.3 gm/dL [facility] Albumin 3.5 3.5 - 5.0 g/dL [facility] Total Bilirubin 0.3 0.2 - 1.2 mg/dL [facility] Bilirubin, Direct 0.2 0.1 - 0.5 mg/dL [facility] Alkaline Phosphatase 110 40 - 150 U/L [facility] AST 37 (H) 5 - 34 U/L [facility] ALT 61 (H) 6 - 55 U/L [facility] Specimen Blood Performing Organization Address City/[facility]/Zipcode Phone Number [facility] [address] [place] [address] [place] Basic metabolic panel (03/08/2019 5:44 AM CDT) Sodium 138 136 - 145 meq/L [facility] Potassium 4.6 3.5 - 5.1 meq/L [facility] Chloride 107 98 - 107 meq/L [facility] CO2 26 22 - 29 meq/L [facility] BUN 3 (L) 7 - 21 mg/dL [facility] Creatinine 0.78 0.57 - 1.25 mg/dL [facility] Glucose 124 (H) 70 - 105 mg/dL [facility] Calcium 9.1 8.4 - 10.2 mg/dL [facility] EGFR 83Comment: ESTIMATED GFR IS mL/min/1.73 sq m [facility] NOT ACCURATE CREATININE ME [facility]ENTER CLEARANCE IN PREDICTING GLOMERULAR FILTRATION RATE. ESTIMATED GFR IS NOT APPLICABLE FOR DIALYSIS PATIENTS. Specimen Blood Performing Organization Address City/State/Zipcode Phone Number [facility] [address] [place] [address] CENTER after 03/08/2019 Insurance Payer Benefit Plan / Group Subscriber ID Type Phone A ddress [employer] - [employer] CARE [employer] PPO xxxxxxxxxxx PPO Advance Directives For more information, please contact:[address] [phone] Code Status Date Activated Date Inactivated Comments Full Code 03/04/2019 11:50 PM 03/08/2019 2:42 PM This code status was determined by: Patient
--- OUTSIDE RECORDS SUMMARY | 2020-03-08 06:24 | XMS REPORT | Continuity of Care Document ---
:1980 Author Organization [facility] t Address [address] [place] [address] Care Team Providers Name Role Phone Asked, Pcp Primary Care Physician Unavailable Christopher LOUISE Attending Clinician Salina Napoles MD Attending Clinician POLO CARROLL Attending Clinician Unavailable POLO CARROLL Admitting Clinician Unavailable Payers Payer Name Policy Type Policy Number Effective Date Expiration Date Catie perez CIGNAAPWU xxxxxxxxxxx 2012 Anderson CIGNAxxxxxxxxxx 00:00:00 Mandaeism 2012-Prese ntCommercial Problems This patient has no known problems. Allergies, Adverse Reactions, Alerts Allergy Allergy Status Severity Reaction(s) Onset Inactive Treating Comm ents Source Name Type Date Date Clinician Sulfa Propensi Active Hives 2018-10 Anderson (Sulfona ty to 11-27 Methodi mide adverse 00:00: st Antibiot reaction 00 ics) s to drug Social History Social Habit Start Date Stop Date Quantity Comments Source Sex Assigned At David nickie Tidwell Medications Ordered Filled Start Stop Current Ordering Indication Dosage Frequency Signature Comments Components Source Medication Medication Date Date Medication? Clinician (SIG) Name Name buPROPion 2018-10- No 300mg QD Take 300 [place] XL 2-03 12-03 mg by Methodi (WELLBUTRIN 12:23: 12:[address] XL) 300 MG 40 :40 daily. 24 hr tablet pantoprazol 2018-10- No 40mg QD Take 40 mg Costa e 10-27 by mouth Methodi (PROTONIX) 00:00: 12:[address] 40 MG EC 00 :40 tablet montelukast 2018-10- No 10mg QD Take 10 mg Igor (SINGULAIR) 10-27 by mouth Met hodi 10 mg 00:00: 12:[address] tablet 00 :40 levocetiriz 2018-10- No 5mg QD Take 5 mg Igor ine (XYZAL) 10-27 by mouth Met hodi 5 MG tablet 00:00: 12:[address] 00 :40 clindamycin 2018-10- No INSERT ONE Costa (CLEOCIN) 2 10-24 (1) Methodi % vaginal 00:00: 12:23 APPLICATOR s t cream 00 :40 FUL INTO VAGINA ONCE DAILY AT BEDTIME. Vital Signs Vital Name Observation Time Observation Value Comments Source Body height 2019-09-26 08:59:00 162.6 cm Igor Tidwell Body weight 2019-09-26 08:59:00 63.504 kg Igor Tidwell BMI 2019-09-26 08:59:00 24.03 kg/m2 Igor Tidwell Systolic blood 2019-08-30 14:49:00 122 mm[Hg] Brock johnston Mandaeism pressure Diastolic blood 2019-08-30 14:49:00 75 mm[Hg] Luz sanchez Mandaeism pressure Heart rate 2019-08-30 14:49:00 120 /min Igor Tidwell Body temperature 2019-08-30 14:49:00 36.83 Mihaela Tabitha florence Mandaeism Procedures Procedure Date / Time Performed Performing Clinician [facility] e MRI CHOLANGIOGRAM W WO 2019-09-26 09:40:00 Marcellus Napoles Mandaeism CONTRAST Lyone CBC HEMOGRAM 2019-08-30 15:55:00 Marcellus Napoles Met fernie Downing COMPREHENSIVE METABOLIC 2019-08-30 15:55:00 Marcellus Napoles PANEL Lyone AMYLASE LEVEL 2019-08-30 15:55:00 Marcellus Napoles Met fernie Downing LIPASE LEVEL 2019-08-30 15:55:00 Marcellus Napoles Met fernie Downing Plan of Care Planned Activity Planned Date Details Comments Source Future Scheduled 2020-05-05 INFLUENZA VACCINE Brock Vailist Test 00:00:00 [code = INFLUENZA VACCINE] Future Scheduled 2001 Screening for [facility] thodist Test 00:00:00 malignant neoplasm of cervix (procedure) [code = 262011612] Encounters Start End Encounter Admission Attending Care Care Encounter Source Date/Time Date/Time Type Type Clinicians Facility Department ID 2019-12-03 2019-12-03 Emergency [facility] [id number] 11:02:17 14:45:00 [place] [id number] [place] [id number] [place] [id number] Results Test Description Test Time Test Comments Results Result Sourc e Comments MRI CHOLANGIOGRAM 2019-09-05 Tabitha Wallace WO CONTRAST 3 Radiology Results Meth odist 10:53:33 - 09/26/2019 10:56 AM CSTEXAMINATION: MRI CHOLANGIOGRAM W WO CONTRASTCLINICAL HISTORY: R93.5 Abnormal findings on diagnostic imaging of other abdominal regions including retroperitoneum, R10.9 Unspecified abdominal pain, Abnormal Xray of abdomenCOMPARISON: None availableTECHNIQUE: Multiplanar, multisequence MRI of the abdomen with and without intravenous gadolinium. MRCP images were obtained with 3-D reconstructions performed on the acquisition scanner under concurrent supervision. FINDINGS:The liver is normal in size and contour. There are couple of subcentimeter T2 hyperintense lesions in the right lobe with delayed enhancement, difficult to fully characterize due to size but most consistent with hemangiomas.The gallbladder is absent. MRCP images demonstrate no biliary or pancreatic ductal dilatation.There are couple of punctate cysts in the tail the pancreas (series 15 image 17). No solid pancreatic mass.Spleen is normal in size.Subcentimeter cyst in the interpolar right kidney. No hydronephrosis. Normal adrenal glands.No lymphadenopathy.No free fluid.IMPRESSION:No acute findings.Couple of nonspecific punctate cysts in the distal pancreatic tail. Follow-up can be obtained in one year.Small hepatic hemangiomas.[facility]-[id number] Comprehensive metabolic panel 2019-08-31 03:33:00 Test Item Value Reference Range Interpretation Comme nts Glucose (test code = 89 mg/dL 65-139 Non-fasting 2345-7) reference inter anni BUN (test code = 8 mg/dL 7-25 3094-0) Creatinine (test code 0.89 mg/dL 0.5-1.1 = 2160-0) EGFR Non-Afr. Bahamian 82 > OR = 60 (test code = 2775) mL/min/1.73m2 EGFR 95 > OR = 60 (test code = 96446-1) mL/min/1.73m2 BUN/creatinine ratio NOT APPLICABLE 6- 22 (calc) (test code = 3097-3) Sodium (test code = 142 mmol/L 739-208 2721-2) Potassium (test code = 4.6 mmol/L 3.5-5.3 2823-3) Chloride (test code = 105 mmol/L 98-110 2074-0) CO2 (test code = 29 mmol/L -32 2027-9) Calcium (test code = 9.7 mg/dL 8.6-10.2 86012-9) Protein (test code = 7.1 g/dL 6.1-8.1 2885-2) Albumin, S (test code 4.0 g/dL 3.6-5.1 = 1751-7) Globulin, total (test 3.1 1.9- 3.7 g/dL code = 56026-8) (calc) Albumin/globulin ratio 1.3 1.0- 2.5 (calc) (test code = 1759-0) Total bilirubin (test 0.3 mg/dL 0.2-1.2 code = 1975-2) Alkaline phosphatase 101 U/L 33-115 (test code = 6768-6) AST (test code = 20 U/L 10 1920-8) ALT (test code = 23 U/L 6 1742-6) PHILLIP (test code = PHILLIP) FASTING:NOFASTING: NO RAC (test code = RAC) Performing Organization Information: Site ID: RGA Name: [facility] Address: [address] [place] [phone] Director: Wesley scott2019-11-27 03:33:00 Test Item Value Reference Range Interpretation Comments Amylase (test code = 25 U/L 21-101 1798-8) PHILLIP (test code = FASTING:NOFASTING: NO PHILLIP) RAC (test code = Performing Organization RAC) Information: Site ID: RGA Name: [facility] Address: [address] [place] [phone] Director: Wesley Costa [facility] [id number] 03:33:00 Test Item Value Reference Range Interpretation Comments Lipase (test code = 37 U/L 7-60 3040-3) PHILLIP (test code = FASTING:NOFASTING: NO PHILLIP) RAC (test code = Performing Organization RAC) Information: Site ID: RGA Name: [facility] Address: [address] [place] [phone] Director: Wesley Best [facility] [id number] 03:33:00 Test Item Value Reference Range Interpretation Comments WBC (test code = 7.4 3.8- 10.8 6690-2) Thousand/uL RBC (test code = 789-8) 3.70 3.80- 5.10 L Million/uL HGB (test code = 718-7) 11.1 g/dL 11.7-15.5 L HCT (test code = 33.7 % 35-45 L 4544-3) MCV (test code = 787-2) 91.1 fL 80-100 MCH (test code = 785-6) 30.0 pg 27-33 MCHC (test code = 32.9 g/dL 32-36 786-4) RDW (test code = 788-0) 11.4 % 11-15 Platelet count (test 387 140- 400 code = 777-3) Thousand/uL MPV (test code = 776-5) 9.3 fL 7.5-12.5 PHILLIP (test code = PHILLIP) FASTING:NOFASTING: NO RAC (test code = RAC) Performing Organization Information: Site ID: RGA Name: [facility] Address: [address] [place] [phone] Director: Wesley Best Lab Interpretation Abnormal (test code = 70496-8) Anderson Methodist[facility]OOD [id number] 08:00:00 Test Item Value Reference Range Interpretation Comments CULTURE (BEAKER) (test No growth in 5 days code = 1095) BLOOD [id number] 08:00:00 Test Item Value Reference Range Interpretation Comments CULTURE (BEAKER) (test No growth in 5 days code = 1095) TISSUE [id number] 16:39:00Surgical Pathology Report Case: [id number] Authorizing Provider: Foster Sanabria MD Collected: 03/07/2019 1917 Ordering Location: [facility] PERIOPERATIVE Received: 03/08/2019 0836 SERVICES Pathologist: Jae Hernandez MD Specimen: Gallbladder, GALL BLADDER and small stone GALLBLADDER, CHOLECYSTECTOMY:CHRONIC CHOLECYSTITIS.CHOLELITHIASIS.ONE REACTIVE LYMPH NODE. Signing Pathologist Direct Phone Line: [phone] signed by Jae Hernandez MD on 03/09/2019 at 4:79NA30929Ljmfoattf painGallbladder tissue, gallbladder and small stonePre and postop diagnosis: cholecystitis Received in formalin labeled with the patient's name, accession number and "gallbladder" is an intact gallbladder measuring 7.5 x 4 x 4 cm with a 1 cm length of attached cystic duct, having a diameter of 0.3 cm. Adjacent to the cystic duct is a possible lymph node measuring 0.8 cm in greatest dimension. The serosa is adair-pink, hyperemic, smooth. There are 30 cc of yellow-green viscid bile admixed with multiple adair- yellow, bosselated, ovoid, nine crushable calculi ranging from 0.1 to 0.3 cm in greatest dimension. Multiple calculi are contained within the cystic duct. The mucosa is yellow-red velvety, slightly trabeculated and mainly edematous. There are no discrete masses identified. The wall measures up to 0.2 cm thick. Director Of Public Safety sections are submitted in cassette A1. KM/pl Performed.CBC W/PLT COUNT & AUTO [id number] 06:47:00 Test Item Value Reference Range Interpretation Comments WHITE BLOOD CELL COUNT (BEAKER) 10.6 K/ L 3.5-10.5 H (test code = 775) RED BLOOD CELL COUNT (BEAKER) 3.28 M/ L 3.93-5.22 L (test code = 761) HEMOGLOBIN (BEAKER) (test code = 10.1 GM/DL 11.2-15.7 L 410) HEMATOCRIT (BEAKER) (test code = 30.2 % 34.1-44.9 L 411) MEAN CORPUSCULAR VOLUME (BEAKER) 92.1 fL 79.4-94.8 (test code = 753) MEAN CORPUSCULAR HEMOGLOBIN 30.8 pg 25.6-32.2 (BEAKER) (test code = 751) MEAN CORPUSCULAR HEMOGLOBIN CONC 33.4 GM/DL 32.2-35.5 (BEAKER) (test code = 752) RED CELL DISTRIBUTION WIDTH 10.9 % 11.7-14.4 L (BEAKER) (test code = 412) PLATELET COUNT (BEAKER) (test 224 K/CU MM 150-450 code = 756) MEAN PLATELET VOLUME (BEAKER) 9.8 fL 9.4-12.3 (test code = 754) NUCLEATED RED BLOOD CELLS 0 /100 WBC 0-0 (BEAKER) (test code = 413) NEUTROPHILS RELATIVE PERCENT 83 % (BEAKER) (test code = 429) LYMPHOCYTES RELATIVE PERCENT 11 % (BEAKER) (test code = 430) MONOCYTES RELATIVE PERCENT 6 % (BEAKER) (test code = 431) EOSINOPHILS RELATIVE PERCENT 0 % (BEAKER) (test code = 432) BASOPHILS RELATIVE PERCENT 1 % (BEAKER) (test code = 437) NEUTROPHILS ABSOLUTE COUNT 8.81 K/ L 1.56-6.13 H (BEAKER) (test code = 670) LYMPHOCYTES ABSOLUTE COUNT 1.12 K/ L 1.18-3.74 L (BEAKER) (test code = 414) MONOCYTES ABSOLUTE COUNT (BEAKER) 0.59 K/ L 0.24-0.36 H (test code = 415) EOSINOPHILS ABSOLUTE COUNT 0.00 K/ L 0.04-0.36 L (BEAKER) (test code = 416) BASOPHILS ABSOLUTE COUNT (BEAKER) 0.05 K/ L 0.01-0.08 (test code = 417) IMMATURE GRANULOCYTES-RELATIVE 0 % 0-1 PERCENT (BEAKER) (test code = 2801) HEPATIC FUNCTION [id number] 06:35:00 Test Item Value Reference Range Interpretation Comments TOTAL PROTEIN (BEAKER) (test code = 6.1 gm/dL 6.0-8.3 770) ALBUMIN (BEAKER) (test code = 1145) 3.5 g/dL 3.5-5.0 BILIRUBIN TOTAL (BEAKER) (test code 0.3 mg/dL 0.2-1.2 = 377) BILIRUBIN DIRECT (BEAKER) (test 0.2 mg/dL 0.1-0.5 code = 706) ALKALINE PHOSPHATASE (BEAKER) (test 110 U/L 40-150 code = 346) AST (SGOT) (BEAKER) (test code = 37 U/L 5-34 H 353) ALT (SGPT) (BEAKER) (test code = 61 U/L 6-55 H 347) BASIC METABOLIC [id number] 06:35:00 Test Item Value Reference Range Interpretation Comments SODIUM (BEAKER) 138 meq/L 136-145 (test code = 381) POTASSIUM (BEAKER) 4.6 meq/L 3.5-5.1 (test code = 379) CHLORIDE (BEAKER) 107 meq/L 98-107 (test code = 382) CO2 (BEAKER) (test 26 meq/L 22-29 code = 355) BLOOD UREA NITROGEN 3 mg/dL 7-21 L (BEAKER) (test code = 354) CREATININE (BEAKER) 0.78 mg/dL 0.57-1.25 (test code = 358) GLUCOSE RANDOM 124 mg/dL 70-105 H (BEAKER) (test code = 652) CALCIUM (BEAKER) 9.1 mg/dL 8.4-10.2 (test code = 697) EGFR (BEAKER) (test 83 mL/min/1.73 ESTIMA AMRITA GFR IS code = 1092) sq m NOT ACCURATE CREATININE CLEARANCE IN PREDICTING GLOMERULAR FILTRATION RATE . ESTIMATED GFR I S NOT APPLICABLE FOR DIALYSIS PATIEN TS. PROTHROMBIN [id number] 06:22:00 Test Item Value Reference Range Interpretation Comments PROTIME (BEAKER) (test code = 13.6 seconds 11.9-14.2 759) INR (BEAKER) (test code = 370) 1.1 <=5.9 Effective 03/02/2019: PT Reference Range ChangeNew: 11.9-14.2 Previous: 11.7- 14.7RECOMMENDED COUMADIN/WARFARIN INR THERAPY RANGESSTANDARD DOSE: 2.0-3.0 Includes: PROPHYLAXIS for venous thrombosis, systemic embolization; TREATMENT for venous thrombosis and/or pulmonary embolus.HIGH RISK: Target INR is2.5-3.5 for patients wiht mechanical heart valves.[id number] 06:22:00 Test Item Value Reference Range Interpretation Comments PARTIAL THROMBOPLASTIN TIME 29.5 seconds 22.5-36.0 (BEAKER) (test code = 760) SCREEN, [id number] 17:35:00 Test Item Value Reference Range Interpretation Comments TEST URINE (BEAKER) (test Negative code = 583) HEPATITIS PANEL, [id number] 15:48:00 Test Item Value Reference Range Interpretation Comments HEPATITIS A IGM ANTIBODY (BEAKER) Nonreactive Nonreactive (test code = 498) HEPATITIS B CORE IGM ANTIBODY Nonreactive Nonreactive (BEAKER) (test code = 645) HEPATITIS C ANTIBODY (BEAKER) Nonreactive Nonreactive (test code = 367) HEPATITIS B SURFACE ANTIGEN (2) Nonreactive Nonreactive (BEAKER) (test code = 2585) HEPATITIS B SURFACE [id number] 10:18:00 Test Item Value Reference Range Interpretation Comments HEPATITIS B SURFACE ANTIGEN (2) Nonreactive Nonreactive (BEAKER) (test code = 2585) HEPATIC FUNCTION [id number] 06:24:00 Test Item Value Reference Range Interpretation Comments TOTAL PROTEIN (BEAKER) (test code = 5.5 gm/dL 6.0-8.3 L 770) ALBUMIN (BEAKER) (test code = 1145) 3.2 g/dL 3.5-5.0 L BILIRUBIN TOTAL (BEAKER) (test code 0.3 mg/dL 0.2-1.2 = 377) BILIRUBIN DIRECT (BEAKER) (test 0.2 mg/dL 0.1-0.5 code = 706) ALKALINE PHOSPHATASE (BEAKER) (test 102 U/L 40-150 code = 346) AST (SGOT) (BEAKER) (test code = 28 U/L 5-34 353) ALT (SGPT) (BEAKER) (test code = 61 U/L 6-55 H 347) BASIC METABOLIC [id number] 06:24:00 Test Item Value Reference Range Interpretation Comments SODIUM (BEAKER) 141 meq/L 136-145 (test code = 381) POTASSIUM (BEAKER) 4.4 meq/L 3.5-5.1 (test code = 379) CHLORIDE (BEAKER) 112 meq/L 98-107 H (test code = 382) CO2 (BEAKER) (test 26 meq/L 22-29 code = 355) BLOOD UREA NITROGEN 4 mg/dL 7-21 L (BEAKER) (test code = 354) CREATININE (BEAKER) 0.75 mg/dL 0.57-1.25 (test code = 358) GLUCOSE RANDOM 88 mg/dL 70-105 (BEAKER) (test code = 652) CALCIUM (BEAKER) 8.5 mg/dL 8.4-10.2 (test code = 697) EGFR (BEAKER) (test 86 mL/min/1.73 ESTIMA AMRITA GFR IS code = 1092) sq m NOT ACCURATE CREATININE CLEARANCE IN PREDICTING GLOMERULAR FILTRATION RATE . ESTIMATED GFR I S NOT APPLICABLE FOR DIALYSIS PATIEN TS. PROTHROMBIN [id number] 05:48:00 Test Item Value Reference Range Interpretation Comments PROTIME (BEAKER) (test code = 14.3 seconds 11.9-14.2 H 759) INR (BEAKER) (test code = 370) 1.2 <=5.9 Effective 03/02/2019: PT Reference Range ChangeNew: 11.9-14.2 Previous: 11.7- 14.7RECOMMENDED COUMADIN/WARFARIN INR THERAPY RANGESSTANDARD DOSE: 2.0-3.0 Includes: PROPHYLAXIS for venous thrombosis, systemic embolization; TREATMENT for venous thrombosis and/or pulmonary embolus.HIGH RISK: Target INR is2.5-3.5 for patients wiht mechanical heart valves.[id number] 05:48:00 Test Item Value Reference Range Interpretation Comments PARTIAL THROMBOPLASTIN TIME 31.4 seconds 22.5-36.0 (BEAKER) (test code = 760) CBC W/PLT COUNT & AUTO [id number] 05:40:00 Test Item Value Reference Range Interpretation Comments WHITE BLOOD CELL COUNT (BEAKER) 7.2 K/ L 3.5-10.5 (test code = 775) RED BLOOD CELL COUNT (BEAKER) 3.11 M/ L 3.93-5.22 L (test code = 761) HEMOGLOBIN (BEAKER) (test code = 9.5 GM/DL 11.2-15.7 L 410) HEMATOCRIT (BEAKER) (test code = 29.2 % 34.1-44.9 L 411) MEAN CORPUSCULAR VOLUME (BEAKER) 93.9 fL 79.4-94.8 (test code = 753) MEAN CORPUSCULAR HEMOGLOBIN 30.5 pg 25.6-32.2 (BEAKER) (test code = 751) MEAN CORPUSCULAR HEMOGLOBIN CONC 32.5 GM/DL 32.2-35.5 (BEAKER) (test code = 752) RED CELL DISTRIBUTION WIDTH 11.5 % 11.7-14.4 L (BEAKER) (test code = 412) PLATELET COUNT (BEAKER) (test 212 K/CU MM 150-450 code = 756) MEAN PLATELET VOLUME (BEAKER) 9.7 fL 9.4-12.3 (test code = 754) NUCLEATED RED BLOOD CELLS 0 /100 WBC 0-0 (BEAKER) (test code = 413) NEUTROPHILS RELATIVE PERCENT 54 % (BEAKER) (test code = 429) LYMPHOCYTES RELATIVE PERCENT 32 % (BEAKER) (test code = 430) MONOCYTES RELATIVE PERCENT 10 % (BEAKER) (test code = 431) EOSINOPHILS RELATIVE PERCENT 3 % (BEAKER) (test code = 432) BASOPHILS RELATIVE PERCENT 1 % (BEAKER) (test code = 437) NEUTROPHILS ABSOLUTE COUNT 3.85 K/ L 1.56-6.13 (BEAKER) (test code = 670) LYMPHOCYTES ABSOLUTE COUNT 2.31 K/ L 1.18-3.74 (BEAKER) (test code = 414) MONOCYTES ABSOLUTE COUNT (BEAKER) 0.75 K/ L 0.24-0.36 H (test code = 415) EOSINOPHILS ABSOLUTE COUNT 0.20 K/ L 0.04-0.36 (BEAKER) (test code = 416) BASOPHILS ABSOLUTE COUNT (BEAKER) 0.05 K/ L 0.01-0.08 (test code = 417) IMMATURE GRANULOCYTES-RELATIVE 0 % 0-1 PERCENT (BEAKER) (test code = 2801) [id number] 11:21:00 Test Item Value Reference Range Interpretation Comments LIPASE (BEAKER) (test code = 749) 30 U/L 8-78 MR, ABDOMEN, [id number] 08:59:00FINAL REPORT TECHNIQUE: MRI of the abdomen and MRCP WITHOUT intravenous contrast. 3-D volume reconstructions were obtained to evaluate the biliary ductal system. INDICATION: Abnormal liver function tests (LFTs). COMPARISON: None. FINDINGS: ABSENCE OF INTRAVENOUS CONTRAST DECREASES SENSITIVITY FOR DETECTION OF FOCAL LESIONS AND VASCULAR PATHOLOGY. LOWER THORAX: Unremarkable. LIVER: No hepatic signal abnormality. A structure with intermediate T2 signal intensity within segment V of the liver measures 1 cm on axial T2-weighted image 21. Additional, similar- appearing segment VIImeasures 0.9 cm on axial image 26BILIARY: The gallbladder wall is diffusely thickened with several layering gallstones. However, gallbladder is not distended. The common bile duct is normal in caliber at 0.4 cm in diameter. A focus of hypointensity posterior to the common bile duct on the T2-weighted images (series A:2) likely a vessel adjacent to the common bile ductSPLEEN: No splenomegaly.PANCREAS:No focal masses or ductal dilatation. Cystic lesions in the pancreatic tail measure up to 1 cm on axial T2-weighted image 23. ADRENALS: No adrenal nodules.KIDNEYS/URETERS: No hydronephrosis or solid mass lesions. A right upper pole renal cyst measures 0.8 cm and has layering T1 hyperintensity, consistent with a hemorrhagic cyst. Additional hemorrhagic cyst in the left interpolar kidney measures 0.6 cm. PERITONEUM/RETROPERITONEUM: No free fluid.LYMPH NODES: No lymphadenopathy.VESSELS: Unremarkable. GI TRACT: No distention or wall thickening. BONES AND SOFT TISSUES: Unremarkable. IMPRESSION: 1.The common bile duct is normal in caliber, and no definite choledocholithiasis is visualized. 2.There are gallstones which layer in the gallbladder with mildly thickened gallbladder wall. However, there is no gallbladder distention. These findings are equivocal for acute cholecystitis. If there is further concern, consider a HIDA. 3.Two lesions with intermediate T2 signal intensity in the liver are incompletely evaluated and indeterminate. These are most likely hemangiomas. However, a follow-up MRI of theabdomen with and without contrast is recommended on a nonemergent basis to exclude other neoplasms. 4.Cystic lesions in the pancreatic tail measure up to 1 cm and are indeterminate. A follow-up MRI with MRCP is recommended in one year. Signed: Allen Palencia MDReport Verified Date/Time: 03/06/2019 08:59:52 Reading Location: [address] Body Reading Room HEPATIC FUNCTION [id number] 07:01:00 Test Item Value Reference Range Interpretation Comments TOTAL PROTEIN (BEAKER) (test code = 6.1 gm/dL 6.0-8.3 770) ALBUMIN (BEAKER) (test code = 1145) 3.5 g/dL 3.5-5.0 BILIRUBIN TOTAL (BEAKER) (test code 0.3 mg/dL 0.2-1.2 = 377) BILIRUBIN DIRECT (BEAKER) (test 0.2 mg/dL 0.1-0.5 code = 706) ALKALINE PHOSPHATASE (BEAKER) (test 129 U/L 40-150 code = 346) AST (SGOT) (BEAKER) (test code = 53 U/L 5-34 H 353) ALT (SGPT) (BEAKER) (test code = 88 U/L 6-55 H 347) BASIC METABOLIC [id number] 07:01:00 Test Item Value Reference Range Interpretation Comments SODIUM (BEAKER) 138 meq/L 136-145 (test code = 381) POTASSIUM (BEAKER) 4.0 meq/L 3.5-5.1 (test code = 379) CHLORIDE (BEAKER) 107 meq/L 98-107 (test code = 382) CO2 (BEAKER) (test 25 meq/L 22-29 code = 355) BLOOD UREA NITROGEN 7 mg/dL 7-21 (BEAKER) (test code = 354) CREATININE (BEAKER) 0.75 mg/dL 0.57-1.25 (test code = 358) GLUCOSE RANDOM 102 mg/dL 70-105 (BEAKER) (test code = 652) CALCIUM (BEAKER) 9.0 mg/dL 8.4-10.2 (test code = 697) EGFR (BEAKER) (test 86 mL/min/1.73 ESTIMA AMRITA GFR IS code = 1092) sq m NOT ACCURATE CREATININE CLEARANCE IN PREDICTING GLOMERULAR FILTRATION RATE . ESTIMATED GFR I S NOT APPLICABLE FOR DIALYSIS PATIEN TS. [id number] 06:52:00 Test Item Value Reference Range Interpretation Comments PARTIAL THROMBOPLASTIN TIME 30.8 seconds 22.5-36.0 (BEAKER) (test code = 760) PROTHROMBIN [id number] 06:51:00 Test Item Value Reference Range Interpretation Comments PROTIME (BEAKER) (test code = 13.7 seconds 11.9-14.2 759) INR (BEAKER) (test code = 370) 1.1 <=5.9 Effective 03/02/2019: PT Reference Range ChangeNew: 11.9-14.2 Previous: 11.7- 14.7RECOMMENDED COUMADIN/WARFARIN INR THERAPY RANGESSTANDARD DOSE: 2.0-3.0 Includes: PROPHYLAXIS for venous thrombosis, systemic embolization; TREATMENT for venous thrombosis and/or pulmonary embolus.HIGH RISK: Target INR is2.5-3.5 for patients wiht mechanical heart valves.CBC W/PLT COUNT & AUTO [id number] 06:33:00 Test Item Value Reference Range Interpretation Comments WHITE BLOOD CELL COUNT (BEAKER) 5.8 K/ L 3.5-10.5 (test code = 775) RED BLOOD CELL COUNT (BEAKER) 3.37 M/ L 3.93-5.22 L (test code = 761) HEMOGLOBIN (BEAKER) (test code = 10.6 GM/DL 11.2-15.7 L 410) HEMATOCRIT (BEAKER) (test code = 30.8 % 34.1-44.9 L 411) MEAN CORPUSCULAR VOLUME (BEAKER) 91.4 fL 79.4-94.8 (test code = 753) MEAN CORPUSCULAR HEMOGLOBIN 31.5 pg 25.6-32.2 (BEAKER) (test code = 751) MEAN CORPUSCULAR HEMOGLOBIN CONC 34.4 GM/DL 32.2-35.5 (BEAKER) (test code = 752) RED CELL DISTRIBUTION WIDTH 11.1 % 11.7-14.4 L (BEAKER) (test code = 412) PLATELET COUNT (BEAKER) (test 234 K/CU MM 150-450 code = 756) MEAN PLATELET VOLUME (BEAKER) 9.6 fL 9.4-12.3 (test code = 754) NUCLEATED RED BLOOD CELLS 0 /100 WBC 0-0 (BEAKER) (test code = 413) NEUTROPHILS RELATIVE PERCENT 49 % (BEAKER) (test code = 429) LYMPHOCYTES RELATIVE PERCENT 37 % (BEAKER) (test code = 430) MONOCYTES RELATIVE PERCENT 9 % (BEAKER) (test code = 431) EOSINOPHILS RELATIVE PERCENT 4 % (BEAKER) (test code = 432) BASOPHILS RELATIVE PERCENT 1 % (BEAKER) (test code = 437) NEUTROPHILS ABSOLUTE COUNT 2.82 K/ L 1.56-6.13 (BEAKER) (test code = 670) LYMPHOCYTES ABSOLUTE COUNT 2.12 K/ L 1.18-3.74 (BEAKER) (test code = 414) MONOCYTES ABSOLUTE COUNT (BEAKER) 0.51 K/ L 0.24-0.36 H (test code = 415) EOSINOPHILS ABSOLUTE COUNT 0.24 K/ L 0.04-0.36 (BEAKER) (test code = 416) BASOPHILS ABSOLUTE COUNT (BEAKER) 0.06 K/ L 0.01-0.08 (test code = 417) IMMATURE GRANULOCYTES-RELATIVE 0 % 0-1 PERCENT (BEAKER) (test code = 2801) SCREEN, [id number] 02:08:00 Test Item Value Reference Range Interpretation Comments TEST URINE (BEAKER) (test Negative code = 583) PROTHROMBIN TIME/[id number] 01:35:00 Test Item Value Reference Range Interpretation Comments PROTIME (BEAKER) (test code = 13.4 seconds 11.9-14.2 759) INR (BEAKER) (test code = 370) 1.1 <=5.9 Effective 03/02/2019: PT Reference Range ChangeNew: 11.9-14.2 Previous: 11.7- 14.7RECOMMENDED COUMADIN/WARFARIN INR THERAPY RANGESSTANDARD DOSE: 2.0-3.0 Includes: PROPHYLAXIS for venous thrombosis, systemic embolization; TREATMENT for venous thrombosis and/or pulmonary embolus.HIGH RISK: Target INR is2.5-3.5 for patients wiht mechanical heart valves.[id number] 01:35:00 Test Item Value Reference Range Interpretation Comments PARTIAL THROMBOPLASTIN TIME 29.7 seconds 22.5-36.0 (BEAKER) (test code = 760) [id number] 01:35:00 Test Item Value Reference Range Interpretation Comments MAGNESIUM (BEAKER) (test code = 1.9 mg/dL 1.6-2.6 627) BASIC METABOLIC [id number] 01:35:00 Test Item Value Reference Range Interpretation Comments SODIUM (BEAKER) 140 meq/L 136-145 (test code = 381) POTASSIUM (BEAKER) 3.8 meq/L 3.5-5.1 (test code = 379) CHLORIDE (BEAKER) 109 meq/L 98-107 H (test code = 382) CO2 (BEAKER) (test 24 meq/L 22-29 code = 355) BLOOD UREA NITROGEN 11 mg/dL 7-21 (BEAKER) (test code = 354) CREATININE (BEAKER) 0.85 mg/dL 0.57-1.25 (test code = 358) GLUCOSE RANDOM 89 mg/dL 70-105 (BEAKER) (test code = 652) CALCIUM (BEAKER) 9.4 mg/dL 8.4-10.2 (test code = 697) EGFR (BEAKER) (test 75 mL/min/1.73 ESTIMA AMRITA GFR IS code = 1092) sq m NOT ACCURATE CREATININE CLEARANCE IN PREDICTING GLOMERULAR FILTRATION RATE . ESTIMATED GFR I S NOT APPLICABLE FOR DIALYSIS PATIEN TS. HEPATIC FUNCTION [id number] 01:35:00 Test Item Value Reference Range Interpretation Comments TOTAL PROTEIN (BEAKER) (test code = 6.6 gm/dL 6.0-8.3 770) ALBUMIN (BEAKER) (test code = 1145) 3.8 g/dL 3.5-5.0 BILIRUBIN TOTAL (BEAKER) (test code 0.6 mg/dL 0.2-1.2 = 377) BILIRUBIN DIRECT (BEAKER) (test 0.2 mg/dL 0.1-0.5 code = 706) ALKALINE PHOSPHATASE (BEAKER) (test 160 U/L 40-150 H code = 346) AST (SGOT) (BEAKER) (test code = 173 U/L 5-34 H 353) ALT (SGPT) (BEAKER) (test code = 162 U/L 6-55 H 347) CBC W/PLT COUNT & AUTO [id number] 01:05:00 Test Item Value Reference Range Interpretation Comments WHITE BLOOD CELL COUNT (BEAKER) 8.0 K/ L 3.5-10.5 (test code = 775) RED BLOOD CELL COUNT (BEAKER) 3.75 M/ L 3.93-5.22 L (test code = 761) HEMOGLOBIN (BEAKER) (test code = 11.5 GM/DL 11.2-15.7 410) HEMATOCRIT (BEAKER) (test code = 34.9 % 34.1-44.9 411) MEAN CORPUSCULAR VOLUME (BEAKER) 93.1 fL 79.4-94.8 (test code = 753) MEAN CORPUSCULAR HEMOGLOBIN 30.7 pg 25.6-32.2 (BEAKER) (test code = 751) MEAN CORPUSCULAR HEMOGLOBIN CONC 33.0 GM/DL 32.2-35.5 (BEAKER) (test code = 752) RED CELL DISTRIBUTION WIDTH 11.4 % 11.7-14.4 L (BEAKER) (test code = 412) PLATELET COUNT (BEAKER) (test 267 K/CU MM 150-450 code = 756) MEAN PLATELET VOLUME (BEAKER) 9.5 fL 9.4-12.3 (test code = 754) NUCLEATED RED BLOOD CELLS 0 /100 WBC 0-0 (BEAKER) (test code = 413) NEUTROPHILS RELATIVE PERCENT 61 % (BEAKER) (test code = 429) LYMPHOCYTES RELATIVE PERCENT 30 % (BEAKER) (test code = 430) MONOCYTES RELATIVE PERCENT 7 % (BEAKER) (test code = 431) EOSINOPHILS RELATIVE PERCENT 2 % (BEAKER) (test code = 432) BASOPHILS RELATIVE PERCENT 1 % (BEAKER) (test code = 437) NEUTROPHILS ABSOLUTE COUNT 4.85 K/ L 1.56-6.13 (BEAKER) (test code = 670) LYMPHOCYTES ABSOLUTE COUNT 2.37 K/ L 1.18-3.74 (BEAKER) (test code = 414) MONOCYTES ABSOLUTE COUNT (BEAKER) 0.59 K/ L 0.24-0.36 H (test code = 415) EOSINOPHILS ABSOLUTE COUNT 0.13 K/ L 0.04-0.36 (BEAKER) (test code = 416) BASOPHILS ABSOLUTE COUNT (BEAKER) 0.06 K/ L 0.01-0.08 (test code = 417) IMMATURE GRANULOCYTES-RELATIVE 0 % 0-1 PERCENT (BEAKER) (test code = 2801)
[2020-03-08 06:38] LABS: Specific Gravity 1.015 (1.005-1.030)
[2020-03-08] MEDS ORDERED: SCOPOLAMINE HYDROBROMIDE PATCH TD ONE (06:39)
[2020-03-08] MEDS ORDERED: Ringers Lactate 1,000 ML IV ONE ×4 (06:40→13:44)
[2020-03-08] MEDS ORDERED: CEFAZOLIN/SWI 2gm 0 GM/0 ML SYR ONE (06:41)
[2020-03-08] MEDS ORDERED: CEFAZOLIN/SWI 2gm 2 GM/20 ML SYR ONE (07:13)
[2020-03-08] MEDS ORDERED: LIDOCAINE 2% MPF 5 ML VIAL ONE (07:35)
[2020-03-08] MEDS ORDERED: KETOROLAC 30 MG/ML INJ ONE (07:35)
[2020-03-08] MEDS ORDERED: ROCURONIUM 50 MG/5 ML VIAL IV ONE (07:35)
[2020-03-08] MEDS ORDERED: dexAMETHasone 10 MG/ML VIAL ONE (07:35)
[2020-03-08] MEDS ORDERED: propofoL 200 MG/20 ML VIAL IV ONE ×3 (07:35→08:47)
[2020-03-08] MEDS ORDERED: FENTANYL CITR 250 MCG/5 ML ONE (07:36)
[2020-03-08] MEDS ORDERED: MIDAZOLAM HCL 2 MG/2 ML INJ ONE (07:36)
[2020-03-08] MEDS ORDERED: ONDANSETRON 4 MG/2 ML VIAL ONE ×2 (07:36→13:44)
[2020-03-08] MEDS ORDERED: NS 0.9% VIAL 20 ML ONE (08:19)
[2020-03-08] MEDS ORDERED: Phenylephrine HCl 10 MG/ML 1 ML VIAL ONE (08:19)
[2020-03-08] MEDS: BUPIVACAINE 0.5% Inj,MDV 50 mL VIAL ONE ×2 (08:31→08:32)
[2020-03-08] MEDS ORDERED: MEPERIDINE HCL 25 MG/ML SYR ONE (10:08)
[2020-03-08] MEDS ORDERED: GLYCOPYRROLATE 0.2 MG/ML SYR ONE (10:32)
[2020-03-08] MEDS ORDERED: NEOSTIGMINE 1 MG/ML -5 ML ONE (10:39)
[2020-03-08] MEDS: HYDROMORPHONE HCL 1 MG/ML INJ ONE ×2 (11:42→11:54)
[2020-03-08] MEDS ORDERED: PROMETHAZINE INJ 25 MG/ML AMP ONE (11:50)
[2020-03-08] MEDS ORDERED: HYDROCODONE/APAP 5/325 MG TAB ONE (13:56)
[2020-03-08 15:37] VITALS: BP 115/72; TEMP 98.7; O2SAT 98
--- NOTE | 2020-03-08 20:35 | OP ---
Date of Procedure: 03/08/2020 Surgeon: Melissa Calix MD Rac Specialist: Justina Gutierrez. Postoperative Diagnoses: Pelvic pain, endometriosis, history of bleeding. Postoperative Diagnoses: Pelvic pain, endometriosis, history of bleeding. Procedures Performed: Total laparoscopic hysterectomy, bilateral salpingo-oophorectomy, lysis of adh esions, and partial removal of endometriosis. Anesthesia: General endotracheal. Specimens: Uterus, bilateral tubes, and ovaries. Complications: No complications. Drains: No drains. Condition: The patient's condition is stable. Indications: The patient is a 39-year-old lady who was taken to the OR more than a year ago for pelv ic pain. She was diagnosed with endometriosis. Attempt was made to scrape off her endometriosis and excise it from the pelvic lateral sidewall, however there were significant adhesions to the blood ve ssels and the structures of the lateral wall, which made excision of the endometriosis difficult. Sh e was at that time pursuing fertility, so both tubes, ovaries were all preserved, endometriosis on e right ovary was removed from the cecal wall, the anterior abdominal wall adhesions were removed. I n the meantime, in the past of 14 months she was managed with Elagolix, which is a GnRH antagonist fo r treatment of endometriosis. She has responded positively, however, this has not eliminated her mily n and it has been getting more expensive and difficult to get her medication, so she decided that she did not have any future fertility desires, so wanted to proceed with a definitive treatment. We dis cussed the options and alternatives of preservation of the ovaries versus removal and given the degre e of pain she has, the endometriosis that was very difficult from the sidewall to be excised. Rosiei jose miguel, the patient preferred to proceed with a hysterectomy, bilateral ovarian removal, followed by ho rmone therapy. After consenting her, she was brought to the OR. Description Of Procedure: She was also counseled that if her pain did not resolve after this, if the re was any bowel endometriosis, she would go back to pursue removing that for more relief. However, this is the first step in that whole process. She was consented, brought to the OR. 2 g of Ancef we re given. She was taken back to the operating room, placed in supine fashion on the operating table, general anesthesia given, placed in the dorsal lithotomy position. Pelvic exam performed. Uterus a nteflexed, some nodularity on the uterosacral area, but no masses in the cul-de-sac and no nodularity noted. After abdomen, vulva, vagina, and perineum were prepped and draped in a sterile fashion, arms tucked by the side. Time-out done. Harris was placed attached for retrograde filling. A large VCare was in serted into the uterus and fixed in place. This area was draped. A 1 cm infraumbilical incision mad e with a scalpel using the open laparoscopy technique. Fascia was incised, tagged with 0 Vicryl sutu res. Peritoneum entered bluntly, S retractors were placed. Delilah introduced. Site of entry was ch ecked, unremarkable. Upper abdominal surface unremarkable. There were no adhesions of the bowel to the anterior abdominal wall. She does have a large redundant cecum that is sitting in her pelvis. T he sigmoid also appeared to be redundant and large, but no masses. No significant endometriosis seen . In the posterior cul-de-sac, there were some endometriosis. The implants cauterized, some pass we re seen on the uterosacral ligaments, especially on the left side. On the right side, there was brett ureteric endometriosis also on some branches along the internal iliac and on the left side, periurete binta endometriosis as well really adherent to the ureteric wall and then very small amount of endometr iosis implants on the superolateral aspects of the lateral broad ligament. The posterior broad ligam ent had endometriosis implants and the ovary was adhered to this on both sides. The adhesions to the sidewall were taken down sharply and the endometriosis was scraped off from the posterior wall and d issection was performed/that all the implants and the scarring were included with the specimen on rem oval. After both the ovaries were released, then utero-ovarian ligament, mesosalpinx tubes, round ligament were all taken down on the left side and dissection was carried through the broad ligament to the ves sels. Altogether, it was very difficult to open because this was all scarred. Once I got down to th e uterine vessels, medial opening was made for the monopolar to create a space where the vessels coul d be taken down and they were taken. On the opposite side, similar dissection was performed taking the utero-ovarian ligament. The tube w as removed, the ovary was and dissected just left attached to the IP. The broad ligament w as dissected down all the way to the level of the uterine vessels. Then anteriorly the bladder flap was raised and dissected down inferiorly to expose the VCare cup. There were adhesions in the vesico vaginal space as wall was not as easily movable. This was at least dissected 1 cm inferior to where the colpotomy would be made, then the medial aspect of the vessels on the right side was also opened up in order for me to take the vessels. Once the vessels were taken down, the cardinal ligaments wer e taken down, then circumferential colpotomy was performed with a monopolar hook blade and the specim en was detached and pulled out through the vagina. The tube and ovary on the left side and the ovary on the right side were all removed systematically s taying away from the ureter and they were pulled out through the vagina. The vaginal occlusion sponge was placed in a glove. Thorough irrigation and suction was performed al l over. Then, the vaginal cuff was closed with the help of 2-0 V-Loc in a continuous running fashion in 2 layers. First the vaginal epithelium, sub-epithelium, and some part of the connective tissue w as closed from right to the left, then back coming from the left to the right. The entire wall was i mbricated and closure was done and 2 back sutures were taken towards the medial aspect to prevent unw inding of the V-Loc. Thorough irrigation and suction was performed. All the pedicles were inspected . There was no evidence of any bleeding. Both ureters were visualized from the pelvic brim to the u reteric tunnels and there was no evidence of any electrical, mechanical, or thermal injury to the ure ters. The trocars were removed. The fascia, the umbilicus,the trocar sites and the skin at all 3 si fabian were all injected with 0.5% Marcaine both at the entry and exit. The fascia at the umbilicus rosa sed with 0 Vicryl in a [id number]-jg-[id number] fashion and then simple 0 Vicryl stitch at the suprapubic inci margy at the fascia level. The skin level, subcutaneous, subcuticular interrupted 4-0 Vicryl sutures were placed. Sponge from the vagina was removed. Harris was removed. Instrument, needle, and sponge counts were done and were correct at the end of the case. EBL was minimal. She was recovered from anesthesia in the OR and taken to the PACU in stable condition. Urine output for the case was 250. She has a followup appointment in 1 week. She has a narcotic prescription already filled. She has b een given all the instructions appropriately. CAMACHO Voice ID: [id number] Report ID: [id number]
== END 2020-03-08 14:30 | disposition home or self-care (01) ==
LOC: OR 06:13
PROVIDERS: ATTEND Obstetrics & Gynecology
PROC: 0UT2FZZ Resection of Bilateral Ovaries, Via Natural or Artificial Opening With Percutaneous Endoscopic Assistance (ICD-10-PCS; 2020-03-08)
PROC: 0UT7FZZ Resection of Bilateral Fallopian Tubes, Via Natural or Artificial Opening With Percutaneous Endoscopic Assistance (ICD-10-PCS; 2020-03-08)
PROC: 0UBF4ZZ Excision of Cul-de-sac, Percutaneous Endoscopic Approach (ICD-10-PCS; 2020-03-08)
PROC: 0UB94ZZ Excision of Uterus, Percutaneous Endoscopic Approach (ICD-10-PCS; 2020-03-08)
PROC: 0UB44ZZ Excision of Uterine Supporting Structure, Percutaneous Endoscopic Approach (ICD-10-PCS; 2020-03-08)
PROC: 0UT9FZZ Resection of Uterus, Via Natural or Artificial Opening With Percutaneous Endoscopic Assistance (ICD-10-PCS; principal; 2020-03-08 07:30)
DX: N80.0 Endometriosis of uterus (principal); N80.3 Endometriosis of pelvic peritoneum; N94.5 Secondary dysmenorrhea; N91.1 Secondary amenorrhea; N95.1 Menopausal and female climacteric states; N73.6 Female pelvic peritoneal adhesions (postinfective); N83.02 Follicular cyst of left ovary; N83.01 Follicular cyst of right ovary; F41.9 Anxiety disorder, unspecified; F32.9 Major depressive disorder, single episode, unspecified; Z79.899 Other long term (current) drug therapy
CPT/HCPCS: 85025; 36415; 86900; 86850; 81025; 86901; 88307; 81003; 58552; 58662; J2704 ×2; J2550; J2370; J2250; J3010; J1100; J2175; J1170; J2710; J0690; J7120 ×4; J2405 ×2